=== PATIENT | female | born 1965 ===

== ENCOUNTER → 2022-08-06 10:24 | Outpatient (POV) | payer BC, SELFPAY ==
[2022-08-06 12:01] VITALS: BP 144/78; PULSE 83; RESP 18; O2SAT 98; BMI 34.0
--- NOTE | 2022-08-06 13:36 | EXP.PAIN.OV ---
HPI Data of Consult Patient: new to practice Consult date: 08/06/22 Requesting Physician: Florida Altamirano APRN Consult Narrative Reason for consult: Bilateral knee pain, hand pain, generalized joint pain History of present illness: Ms. Linda is a 57 year old female who presents today as a new patient. She is a referral from Chantal James's office. Today she rates her pain a 4 out of 10. Patient states she has allover generalized joint pain related to rheumatoid arthritis and osteoarthritis multiple joints. Patient states this has been going on for years and progressively worsened over time. She does state this is a constant stiff achy sensation that is worse with increased activity. She does state this interferes with her ability to perform activities of daily living such as cooking and cleaning. She states that she does have trouble sleeping and wakes up very stiff in the mornings. She does state that her hands and knees are a problematic area of worsening pain. Patient has tried [id number] medications such as Tylenol and ibuprofen along with heat and ice and topicals with no additional relief. Patient denies any history of injections in the past. She is currently managed with gabapentin 600 mg 3 times a day from an outside provider. Patient denies any side effects from this medication. Patient has tried to exercise and stretch at home for longer than 6 months with no additional relief. Patient denies any recent physical therapy or chiropractor history. Her Desmond is [id number]. Its been reviewed and appropriate. CC: Florida Altamirano APRN [facility] Disclaimer: The information contained in this section may have been updated after the patient was seen, as this information can be updated by other users. Medical History (Updated 08/06/22 @ 13:42 by Florida Altamirano APRN) HLD (hyperlipidemia) HTN (hypertension) Rheumatoid arthritis Social History (Updated 08/06/22 @ 12:25 by Ena Mendez RN) Smoking Status: Current every day smoker alcohol intake: never current occupational status: other Travel in the last 8 weeks: None Review of Systems Review of Systems Review of systems:: pertinent systems reviewed and negative unless documented below Review of systems (narrative): Review of Systems: General: No recent weight changes, no fever, no sleep disturbances Respiratory: No cough, no shortness of air, no recurring pulmonary infections Cardiovascular/peripheral vascular: No chest pain, no palpitations, no edema, no shortness of breath Gastrointestinal: No new onset incontinence, normal bowel movements reported Genitourinary: No new onset incontinence Musculoskeletal: Bilateral knee pain, bilateral hand pain Psychiatric: [Normal mood/affect] Neurological: [Denies weakness in extremities], [denies balance issues] Meds Home Medications and Allergies Home Medications Medication Instructions Recorded Confirmed Type amlodipine 5 mg tablet 5 mg PO DAILY BLOOD PRESSURE 08/06/22 08/06/22 History aspirin 81 mg tablet,delayed 81 mg PO DAILY Blood thinner 08/06/22 08/06/22 History release atorvastatin 40 mg tablet 40 mg PO DAILY Cholesterol 08/06/22 08/06/22 History benazepril 40 mg tablet 40 mg PO DAILY BLOOD PRESSURE 08/06/22 08/06/22 History ergocalciferol (vitamin D2) 1,250 1,250 mcg PO WEEKLY SUPPLIMENT 08/06/22 08/06/22 History mcg (50,000 unit) capsule (Vitamin D2) gabapentin 600 mg tablet 600 mg PO TID Pain 08/06/22 08/06/22 History leflunomide 10 mg tablet 10 mg PO DAILY Rheumatoid arthritis 08/06/22 08/06/22 History methocarbamol 750 mg tablet 750 mg PO BID #60 tabs 08/06/22 Rx metoprolol succinate 25 mg 25 mg PO DAILY BLOOD PRESSURE 08/06/22 08/06/22 History tablet,extended release 24 hr nitroglycerin 0.4 mg sublingual 0.4 mg sublingual NEEDED PRN 08/06/22 08/06/22 History tablet Chest Pain New Prescriptions to Start Prescriptions: hussainocarbFlorida Hester
== END | disposition home or self-care (01) ==
PROVIDERS: Visit Provider Nurse Practitioner Family
DX: M17.0 Bilateral primary osteoarthritis of knee (principal); M25.561 Pain in right knee; M25.562 Pain in left knee; M79.641 Pain in right hand; M79.642 Pain in left hand; M06.9 Rheumatoid arthritis, unspecified; M25.50 Pain in unspecified joint
CPT/HCPCS: 99202; G0463